=== PATIENT | male | born 1995 | race Caucasian/White ===

== ENCOUNTER → 2022-03-09 14:03 | Outpatient (BNVA) | payer MEDICARE, MEDICAID, SELFPAY | PROVIDERS: PCP Internal Medicine; Visit Provider Nurse Practitioner Family | DX: F95.2 Tourette's disorder (principal); M54.2 Cervicalgia; F98.8 Other specified behavioral and emotional disorders with onset usually occurring in childhood and adolescence; F84.9 Pervasive developmental disorder, unspecified; Z79.899 Other long term (current) drug therapy | CPT/HCPCS: 99212 ==

== ENCOUNTER 2024-01-10 13:30 | Outpatient (AMB) | payer MEDICARE, MEDICAID, SELFPAY ==
--- NOTE | 2024-01-10 13:32 | MHC.PC.OV ---
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 Allergies No Known Allergies [No Known Allergies*] Allergy (Verified 01/10/24 13:34) Medication List - Last Reconciled 01/10/24 by JAZMYN Landry atomoxetine 40 mg PO QAM baclofen 10 mg PO BEDTIME PRN lorazepam 0.5 mg PO DAILY PRN paroxetine HCl mg PO risperidone 2 mg PO TID; 30 days Tobacco use date assessed: 01/10/24 Dental Screening Dental Screen Date: 01/10/24 Did you have a dental visit in the last 12 months?: Yes Did you have a dental problem in the last 6 months where you did not have access to dental care?: No Was dental information given to patient?: Patient has dentist HPI Annual PE HPI Details Pt is here for a PE. Will order labs. Pt sees a psychiatrist and a therapist. Denies any SI and HI. PFSH Surgical History No pertinent past surgical history Family History Father Hypertension Kidney stones Diabetes Anxiety High cholesterol Mother Thyroid disease Sister Mental health disorder Social History Housing: House Alcohol intake: current Alcohol intake frequency: a few times a week Alcohol type: beer Patient Tobacco Use Status: Never used Tobacco e-Cigarette/Vaping Use: Never Used Second Hand Smoke Exposure: No service: No Current occupational status: employed Current occupation: [employer] Current occupational exposures/hazards: No Cognitive needs: No Hearing needs: No Vision needs: No Questionnaire PHQ-9 Over the last 2 weeks, how often have you been bothered by any of the following problems? 1. Little interest or pleasure in doing things: nearly every day 2. Feeling down, depressed, or hopeless: several days 3. Trouble falling or staying asleep, or sleeping too much: several days 4. Feeling tired or having little energy: not at all 5. Poor appetite or overeating: not at all 6. Feeling bad about yourself - or that you are a failure or have let yourself or your family down: several days 7. Trouble concentrating on things, such as reading the newspaper or watching television: more than half the days 8. Moving or speaking so slowly that other people could have noticed. Or the opposite - being so fidgety or restless that you have been moving around a lot more than usual: several days 9. Thoughts that you would be better off or of hurting yourself in some way: not at all Total score: 9 Depression Screening Interpretation: Positive (has a therapist and psychiatrist) Depression Screening Done: Yes 61837 - PHQ-9 Billing: Yes Source: Developed by Drs. Lloyd Damon, Susan Chan, Dexter Llanos and colleagues, with an educational noah from [employer]. Thrive Questionnaire Date Thrive assessed: 01/10/24 I am a: Patient What is your living situation today?: I have a steady place to live Within the past 12 months, did the food you bought not last and you didn't have the money to get more?: Never true Within the past 12 months, did you worry whether your food would run out before you got money to buy more?: Never true Do you have trouble paying for medicines?: No Do you have trouble getting transportation to medical appointments?: No Do you have trouble paying your heating and electricity bill?: No Do you have trouble taking care of your child, family member or friend?: No Do you have trouble with day-to-day activities such as bathing, preparing meals, shopping, managing finances, etc.?: No Are you currently unemployed and looking for a job?: No Are you interested in more education?: No Please select the resources that you would like help with: None Currently or been in a relationship where the following occur: no concerns reported THRIVE Score: 0 AUDIT C Alcohol Use Questionnaire (AUDIT-C) 1. How often do you have a drink containing alcohol?: 2-4 times a month 2. How many drinks containing alcohol do you have on a typical day when you are drinking?: 1 or 2 3. How often do you have six or more drinks on one occasion?: Never Total Score: 2 Score Reviewed/Action Taken: Yes HEATHER-7 AMB Questionnaire HEATHER-7 Date HEATHER - 7 assessed: 01/10/24 Feeling nervous, anxious, or on edge: 0 = Not at all Not being able to stop or control worryin = Not at all Worrying too much about different things: 0 = Not at all Trouble relaxin = Not at all Being so restless that it is hard to sit still: 0 = Not at all Becoming easily annoyed or irritable: 0 = Not at all Feeling afraid as if something awful might happen: 0 = Not at all Total HEATHER-7 score (0-4 normal; 5-9 mild; 10-14 moderate; 15-21 severe): 0 Source: Developed by Drs. Lloyd Damon, Susan Chan, Dexter Llanos and colleagues, with an educational noah from [employer]. HEATHER-7 Assessment Billing HEATHER-7 Assessment Tool: HEATHER-7 Assessment 72014 Review of Systems Const Denies chills and Denies fever(s) Eyes Denies blurry vision ENT Denies vertigo, Denies dizziness and Denies sore throat Card Denies chest pain at rest, Denies chest pain with activity, Denies diaphoresis, Denies dyspnea and Denies dyspnea on exertion Resp Denies cough, Denies dyspnea, Denies dyspnea on exertion and Denies wheezing GI Denies abdominal pain, Denies melena, Denies hematochezia, Denies constipation, Denies diarrhea and Denies loose stools Denies hematuria Musc Denies numbness and Denies tingling Skin/Breast Denies lesions Neuro Denies vertigo, Denies dizziness, Denies numbness and Denies tingling Psych Denies anxiety, Denies depression, Denies homicidal ideation, Denies suicidal ideation and Denies other (substance abuse) Aller/Immun Denies wheezing Physical exam (Primary Care) Vital Signs: Last Vital Signs Pulse 93 01/10/24 13:33 BP 118/68 01/10/24 13:33 Pulse Ox 98 01/10/24 13:33 Oxygen Delivery Method Room Air 01/10/24 13:33 BMI result Body Mass Index 29.6 Tobacco/Smoking Status: Tobacco use Status Tobacco use date assessed 01/10/24 01/10/24 13:39 Patient Tobacco Use Status Never used Tobacco 01/10/24 13:34 e-Cigarette/Vaping Use Never Used 01/10/24 13:34 PHQ-9: PHQ-9 Score PHQ-9: Total score 9 01/10/24 14:00 Depression Screening Interpretation: Positive (has a therapist and psychiatrist) Thrive Assessment: Date of Thrive Assessment Date Thrive assessed 01/10/24 01/10/24 13:39 Currently or been in a relationship where the following occur: no concerns reported Const General: cooperative Nutritional Appearance: well nourished Orientation/consciousness: patient oriented x3 HENMT Head: Yes normal to inspection, Yes normocephalic and Yes atraumatic Ears: TM's normal bilaterally Eyes General: appearance normal, both eyes and all related structures Alignment and Position: alignment normal and position normal Neck Neck: Yes normal visual inspection and Yes no lymphadenopathy Thyroid: Thyroid normal Resp Effort & Inspection: normal respiratory effort Auscultation: clear to auscultation bilaterally Cardio Rate: regular rate Rhythm: regular rhythm Heart sounds: S1 normal heart sound present, S2 normal heart sound present and no murmurs GI Palpation (GI): Soft to palpation and nontender Auscultation: normal bowel sounds Male General Exam: Yes normal external exam Penis: normal penis Scrotum: scrotum normal, testes descended bilaterally and no inguinal hernias Testes: no testicular mass Skin Rashes: no rashes Neuro General: patient oriented x3, moves all extremities, no focal motor deficits and deep tendon reflexes 2+ bilaterally Romberg Test: Negative Psych Appearance: grossly normal Mental Status: mental status grossly normal Speech and movement: Normal speech and movement present Affect: normal affect Attitude: cooperative Thought process: Normal thought process present Thought content: Normal thought content present Insight: Good insight present (Psych) Judgement: Good judgement present (Psych) Assessment and Plan Assessment & Plan (1) Physical exam: Code(s): Z00.00 - Encounter for general adult medical examination without abnormal findings Plan: Labs ordered Plan The patient agreed to the use of a medical records custodian for this encounter. Scribed for JAZMYN Morel by Shanique Voss medical records custodian, on 01/10/2024 at 14:00 EST. Orders: Orders Complete Blood Count Auto Diff Today Z00.00 - Encounter for general adult medical examination without abnormal findings Comprehensive [place]. Panel Fast Today Z00.00 - Encounter for general adult medical examination without abnormal findings UA CC w/rflx Micro + Cult Today Z00.00 - Encounter for general adult medical examination without abnormal findings Lipid Panel Today Z00.00 - Encounter for general adult medical examination without abnormal findings TSH reflex Free T4 Today Z00.00 - Encounter for general adult medical examination without abnormal findings Coding Level of Care Code Est Pt Prev Care 18-39y(35589) Diagnoses Physical exam Z00.00 Additional Codes HEATHER-7 Assessment Billing - HEATHER-7 Assessment Tool: HEATHER-7 Assessment 20312 ([id number])
[2024-01-10 13:33] VITALS: BP 118/68; PULSE 93; O2SAT 98; BMI 29.6
== END 2024-01-10 14:12 | disposition home or self-care (01) ==
PROVIDERS: PCP Nurse Practitioner Family; Visit Provider Nurse Practitioner Family
DX: Z00.00 Encounter for general adult medical examination without abnormal findings (principal)
CPT/HCPCS: 99395

== ENCOUNTER 2024-02-17 09:45 | Outpatient (AMB) | payer MEDICARE, MEDICAID, SELFPAY ==
[2024-02-17 09:53] VITALS: BP 114/78; PULSE 87; O2SAT 98; BMI 30.2
--- NOTE | 2024-02-17 09:53 | A.OFFVIS_ITS ---
Intake Vital Signs 02/17/24 09:53 Height 5 ft 6 in Weight 187 lb BMI 30.2 BP 114/78 Blood Pressure Location Rt brachial Position Sitting Pulse 87 Pulse Source Pulse Oximeter Pulse Oximetry (%) 98 Oxygen Delivery Method Room Air Intake Visit Reasons: Follow up-Conf Intake Note: Patient presents for follow up. no issues or concerns today. Allergies No Known Allergies [No Known Allergies*] Allergy (Verified 02/17/24 09:56) Medication List - Last Reconciled 02/17/24 by ERNESTO Leblanc atomoxetine 40 mg PO QAM baclofen 10 mg PO BEDTIME PRN 30 days lorazepam 0.5 mg PO DAILY PRN paroxetine HCl mg PO risperidone 2 mg PO TID; 30 days HPI HPI Comments History of Present Illness Details 29-yr-old male presents for f/u visit. Accompanied by his father. Pt denies any significant interval medical history changes. He has recently had his upper teeth excised and will get upper dentures- patient states this is due to familial soft dentition. He has a therapist and a psych med prescriber. He was switched to atomoxetine d/t adderral shortage. States he is doing well on the atomoxetine. 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 Overall eating and drinking well. He is drinking less- now trying zero-alcohol beer. States he is sleeping well. His mood is better since he has started the new job. He has a good friend- which is good for him. He reports his Tics are not as severe, but still present. Father endorses this sentiment. He can still have verbal yelling out, jerking movement, may jump if excited or nervous. He continues to use baclofen as needed for neck tightness, overall this is improved. [facility] Surgical History No pertinent past surgical history Family History Father Hypertension Kidney stones Diabetes Anxiety High cholesterol Mother Thyroid disease Sister Mental health disorder Social History Housing: House Alcohol intake: current Alcohol intake frequency: a few times a week Alcohol type: beer Patient Tobacco Use Status: Never used Tobacco e-Cigarette/Vaping Use: Never Used Second Hand Smoke Exposure: No service: No Current occupational status: employed Current occupation: [employer] Current occupational exposures/hazards: No Cognitive needs: No Hearing needs: No Vision needs: No Review of Systems Const All systems reviewed & are unremarkable except as noted in HPI and below Physical Exam Vital Signs: Last Vital Signs Pulse 87 02/17/24 09:53 BP 114/78 02/17/24 09:53 Pulse Ox 98 02/17/24 09:53 Oxygen Delivery Method Room Air 02/17/24 09:53 BMI result Body Mass Index 30.2 Const General: cooperative and no acute distress Resp Effort & Inspection: normal respiratory effort and able to speak in complete sentences Neuro Other: A&O x's 3, with mild developmental delay. Patient has increased insight today. Pleasant affect. Mild intermittent in motor tics. Rare vocal tic. 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 for tic symptoms. Baclofen 10mg as needed for cervicalgia. Continue regular physical activity. Continue to work with therapist and Psychiatry. Follow-up in 1 year or sooner as needed. Medications: Changed From baclofen 10 mg PO BEDTIME PRN muscle spasm To baclofen 10 mg PO BEDTIME PRN 30 tabs 3RF muscle spasm 30 days From risperidone 2 mg PO TID; 30 days 90 tabs 3RF To risperidone 2 mg PO TID; 90 tabs 6RF 30 days Coding Level of Care Code Est Pt Level 4 (57975) Diagnoses Tourette's syndrome F95.2 Pervasive developmental disorder F84.9 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 Cervicalgia M54.2
== END 2024-02-17 10:44 | disposition home or self-care (01) ==
PROVIDERS: PCP Nurse Practitioner Family; Visit Provider Nurse Practitioner Family
DX: F95.2 Tourette's disorder (principal); F84.9 Pervasive developmental disorder, unspecified; F98.8 Other specified behavioral and emotional disorders with onset usually occurring in childhood and adolescence; M54.2 Cervicalgia
CPT/HCPCS: 99214

== ENCOUNTER → 2024-02-17 09:45 | Outpatient (BNVA) | payer MEDICARE, MEDICAID, SELFPAY | PROVIDERS: PCP Nurse Practitioner Family; Visit Provider Nurse Practitioner Family | DX: F95.2 Tourette's disorder (principal); F84.9 Pervasive developmental disorder, unspecified; F98.8 Other specified behavioral and emotional disorders with onset usually occurring in childhood and adolescence; M54.2 Cervicalgia | CPT/HCPCS: 99212 ==

== ENCOUNTER 2025-02-05 14:53 | Outpatient (AMB) | payer MEDICARE, MEDICAID, SELFPAY ==
[2025-02-05 15:06] VITALS: BP 120/78; PULSE 90; TEMP 36.6; O2SAT 98; BMI 30.5
--- NOTE | 2025-02-05 15:06 | MHC.PC.OV ---
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 Accompanied by: Self / Same As Patient Allergies No Known Allergies [No Known Allergies*] Allergy (Verified 02/05/25 15:14) Medication List - Last Reconciled 02/05/25 by Evelio Armas, WIRE COATING OPERATOR METAL- atomoxetine 40 mg PO QAM baclofen 10 mg PO BEDTIME PRN 30 days lorazepam 0.5 mg PO DAILY PRN paroxetine HCl mg PO risperidone 2 mg PO TID; 30 days Tobacco use date assessed: 02/05/25 Dental Screening Dental Screen Date: 02/05/25 Did you have a dental visit in the last 12 months?: Yes Did you have a dental problem in the last 6 months where you did not have access to dental care?: No Was dental information given to patient?: Patient has dentist HPI Annual PE/Secondary covers PE HPI Details History of Present Illness The patient is a 29-year-old male presenting for a physical examination. He has a history of attention deficit disorder (ADD), pervasive developmental disorder, and Tourette's disorder. These conditions are carefully managed through regular visits with his psychiatric provider and neurologist. 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 He remains slightly overweight, and efforts to manage this include discussions around diet and alcohol use. The importance of exercise has also been highlighted, leveraging the favorable weather conditions to promote physical activity. No immediate concerns regarding his neurological and developmental disorders were stated or identified during the visit, and the patient appears to be managing these chronic conditions effectively. Health Maintenance - Encouraged reduction in alcohol consumption - Advised increased physical activity with approaching good weather - Weight management discussion Social History - Employment: New job working on a farm - Exercise: Encouraged due to good weather and slight overweight Review of Systems - Cardiovascular: Reports feeling great overall - Psychological: Reports positive mood with recent life changes Physical Exam General: Cooperative, healthy appearing, comfortable, no acute distress and well developed, obese Orientation: Patient oriented x3 Limitations: No limitations Head: Normal to inspection Ears: Hearing grossly normal bilaterally Nose: Normal external nose present Face and sinus: Normal facial exam Eyes: Appearance normal, both eyes and all related structures Neck: Normal visual inspection and Yes full ROM Respiratory: Normal respiratory effort and able to speak in complete sentences. Clear to auscultation bilaterally Cardiovascular: Regular rate and rhythm. Normal S1 and S2 : no testicular lesions, no hernias appreciated GI: Normal to inspection. Soft to palpation and nontender Skin: No rashes or lesions noted Neuro: Patient oriented x3 Extremities: Normal to inspection Results Plan Regular management of the patient's neurological and developmental disorders through follow-ups with psychiatric and neurology providers remains crucial. Discussions emphasized adopting a lifestyle conducive to weight management by encouraging increased physical activity and reducing alcohol intake. The positive effect of starting a new job is acknowledged and potentially contributes to the patient's improvement in mood and general outlook. Continuing lifestyle modifications, along with consistent monitoring and adherence to the established care plans, is the focus for sustained health and well-being. Discussion Notes I reviewed the patient's current well-being, focusing on his neurological and developmental conditions managed by his specialist providers. We discussed therapeutic benefits of weight management strategies, including exercise and reduced alcohol consumption. The patient was advised about the importance of these lifestyle adjustments, particularly with the good weather offering an opportunity for outdoor activities. I discussed the positive implications of these changes on his health. We agreed on continuing regular follow-ups with his psychiatric and neurological providers to ensure stable management of existing conditions. No immediate changes to his current medication or treatment regimen were proposed, pending ongoing assessments. Patient Instructions - Continue regular follow-ups with psychiatric and neurology specialists - Increase physical activity regularly, taking advantage of good weather - Monitor and reduce alcohol consumption - Maintain weight management efforts - Return to clinic if any new or worsening symptoms arise [facility] Surgical History No pertinent past surgical history Family History Father Hypertension Kidney stones Diabetes Anxiety High cholesterol Mother Thyroid disease Sister Mental health disorder Social History Housing: House Alcohol intake: current Alcohol intake frequency: a few times a week Alcohol type: beer Patient Tobacco Use Status: Never used Tobacco e-Cigarette/Vaping Use: Never Used Second Hand Smoke Exposure: No service: No Current occupational status: employed Current occupation: [employer] Current occupational exposures/hazards: No Cognitive needs: No Hearing needs: No Vision needs: No Questionnaire PHQ-9 Over the last 2 weeks, how often have you been bothered by any of the following problems? 1. Little interest or pleasure in doing things: not at all 2. Feeling down, depressed, or hopeless: not at all 3. Trouble falling or staying asleep, or sleeping too much: not at all 4. Feeling tired or having little energy: not at all 5. Poor appetite or overeating: not at all 6. Feeling bad about yourself - or that you are a failure or have let yourself or your family down: not at all 7. Trouble concentrating on things, such as reading the newspaper or watching television: not at all 8. Moving or speaking so slowly that other people could have noticed. Or the opposite - being so fidgety or restless that you have been moving around a lot more than usual: not at all 9. Thoughts that you would be better off or of hurting yourself in some way: not at all Total score: 0 Depression Screening Interpretation: Negative Depression Screening Done: Yes 34730 - PHQ-9 Billing: Yes Source: Developed by Drs. Lloyd Damon, Susan Chan, Dexter Llanos and colleagues, with an educational noah from [employer]. Thrive Questionnaire Date Thrive assessed: 02/05/25 I am a: Patient What is your living situation today?: I have a steady place to live Within the past 12 months, did the food you bought not last and you didn't have the money to get more?: Never true Within the past 12 months, did you worry whether your food would run out before you got money to buy more?: Never true Do you have trouble paying for medicines?: No Do you have trouble getting transportation to medical appointments?: No Do you have trouble paying your heating and electricity bill?: No Do you have trouble taking care of your child, family member or friend?: No Do you have trouble with day-to-day activities such as bathing, preparing meals, shopping, managing finances, etc.?: No Are you currently unemployed and looking for a job?: No Are you interested in more education?: No Please select the resources that you would like help with: Transportation Currently or been in a relationship where the following occur: No concerns reported THRIVE Score: 0 AUDIT C Alcohol Use Questionnaire (AUDIT-C) 1. How often do you have a drink containing alcohol?: 2-3 times a week 2. How many drinks containing alcohol do you have on a typical day when you are drinking?: 1 or 2 3. How often do you have six or more drinks on one occasion?: Less than monthly Total Score: 4 Score Reviewed/Action Taken: Yes HEATHER-7 AMB Questionnaire HEATHER-7 Date HEATHER - 7 assessed: 02/05/25 Feeling nervous, anxious, or on edge: 1 = Several days Not being able to stop or control worryin = Not at all Worrying too much about different things: 0 = Not at all Trouble relaxin = Not at all Being so restless that it is hard to sit still: 0 = Not at all Becoming easily annoyed or irritable: 0 = Not at all Feeling afraid as if something awful might happen: 0 = Not at all Total HEATHER-7 score (0-4 normal; 5-9 mild; 10-14 moderate; 15-21 severe): 1 Source: Developed by Drs. Lloyd Damon, Susan Chan, Dexter Llanos and colleagues, with an educational noah from [employer]. HEATHER-7 Assessment Billing HEATHER-7 Assessment Tool: HEATHER-7 Assessment 19496 Physical exam (Primary Care) Vital Signs: Last Vital Signs Temp 97.8 F 02/05/25 15:06 Pulse 90 02/05/25 15:06 BP 120/78 02/05/25 15:06 Pulse Ox 98 02/05/25 15:06 BMI result Body Mass Index 30.5 Tobacco/Smoking Status: Tobacco use Status Tobacco use date assessed 02/05/25 02/05/25 15:08 Patient Tobacco Use Status Never used Tobacco 02/05/25 15:08 e-Cigarette/Vaping Use Never Used 02/05/25 15:08 PHQ-9: PHQ-9 Score PHQ-9: Total score 0 02/05/25 15:08 Depression Screening Interpretation: Negative Thrive Assessment: Date of Thrive Assessment Date Thrive assessed 02/05/25 02/05/25 15:08 Currently or been in a relationship where the following occur: No concerns reported Coding Level of Care Code Est Pt Prev Care 18-39y(68370) Diagnoses Physical exam Z00.00 Pervasive developmental disorder F84.9 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 Tourette's syndrome F95.2 Additional Codes HEATHER-7 Assessment Billing - HEATHER-7 Assessment Tool: HEATHER-7 Assessment 50228 ([id number]) PHQ-9 - 13746 - PHQ-9 Billing: Yes ([id number]) Assessment & Plan Assessment & Plan (1) Physical exam: Code(s): Z00.00 - Encounter for general adult medical examination without abnormal findings Category: Medical (2) Pervasive developmental disorder: Code(s): F84.9 - Pervasive developmental disorder, unspecified Category: Medical (3) Attention deficit disorder predominant inattentive type: Code(s): F98.8 - Other specified behavioral and emotional disorders with onset usually occurring in childhood and adolescence Category: Medical (4) Tourette's syndrome: Code(s): F95.2 - Tourette's disorder Category: Medical Plan . Orders: Orders Comprehensive Hyder. Panel Fast Today F84.9 - Pervasive developmental disorder, unspecified, F95.2 - Tourette's disorder, F98.8 - Other specified behavioral and emotional disorders with onset usually occurring in childhood and adolescence, Z00.00 - Encounter for general adult medical examination without abnormal findings Complete Blood Count Auto Diff Today F84.9 - Pervasive developmental disorder, unspecified, F95.2 - Tourette's disorder, F98.8 - Other specified behavioral and emotional disorders with onset usually occurring in childhood and adolescence, Z00.00 - Encounter for general adult medical examination without abnormal findings TSH reflex Free T4 Today F84.9 - Pervasive developmental disorder, unspecified, F95.2 - Tourette's disorder, F98.8 - Other specified behavioral and emotional disorders with onset usually occurring in childhood and adolescence, Z00.00 - Encounter for general adult medical examination without abnormal findings UA CC w/rflx Micro + Cult Today F84.9 - Pervasive developmental disorder, unspecified, F95.2 - Tourette's disorder, F98.8 - Other specified behavioral and emotional disorders with onset usually occurring in childhood and adolescence, Z00.00 - Encounter for general adult medical examination without abnormal findings Lipid Panel Today F84.9 - Pervasive developmental disorder, unspecified, F95.2 - Tourette's disorder, F98.8 - Other specified behavioral and emotional disorders with onset usually occurring in childhood and adolescence, Z00.00 - Encounter for general adult medical examination without abnormal findings
== END 2025-02-05 15:54 | disposition home or self-care (01) ==
LOC: HO.HMCC 14:54
PROVIDERS: PCP Nurse Practitioner Family; Visit Provider Nurse Practitioner Family
DX: Z00.00 Encounter for general adult medical examination without abnormal findings (principal); F84.9 Pervasive developmental disorder, unspecified; F98.8 Other specified behavioral and emotional disorders with onset usually occurring in childhood and adolescence; F95.2 Tourette's disorder

== ENCOUNTER → 2025-02-05 14:53 | Outpatient (BNVA) | payer MEDICARE, MEDICAID, SELFPAY | PROVIDERS: PCP Nurse Practitioner Family; Visit Provider Nurse Practitioner Family | DX: Z00.00 Encounter for general adult medical examination without abnormal findings (principal); F84.9 Pervasive developmental disorder, unspecified; F98.8 Other specified behavioral and emotional disorders with onset usually occurring in childhood and adolescence; F95.2 Tourette's disorder | CPT/HCPCS: 96127; 99395 ==

== ENCOUNTER 2025-06-21 11:05 | Outpatient (AMB) | payer MEDICARE, MEDICAID, SELFPAY ==
--- OUTSIDE RECORDS SUMMARY | 2025-06-21 11:15 | XMS_ITS ---
Author Name [facility] Organization Unknown Care Team Organization Name Specialty Phone Email Start Date End Da te [facility] FLORENCIO CHASE Primary [facility] 09/28/2022 07/09/2024
--- OUTSIDE RECORDS SUMMARY | 2025-06-21 11:15 | XMS_ITS | Encounter Summary ---
Author Organization [facility] Address [address] [place] [address] Care Team Providers Care Early Childhood Worker Name Role Phone Terese Borrego DO Primary Care Pro vider Unavailable Lloyd Elias DO Primary Care Provider Gretel vailable Reason for Visit * Reason Onset Date Comments refill request 10/18/2017 Encounter Details Date Type Department Care Team Description 10/18/2017 Refill Adult Medicine [address] [address] Terese Borrego DO refill request Social History Tobacco Use Types Packs/Day Years Used Date Smoking Tobacco: Never Alcohol Use Standard Drinks/Week Comments Yes 0 (1 standard drink = 0.6 oz pur e alcohol) occ Sex Assigned at Date Recorded Not on file documented as of this encounter Miscellaneous Notes * Telephone Encounter - Joan Carroll M.A. 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 06/29/2017 WHEN WAS THE LAST TIME THE PATIENT SAW THEIR PCP? Same as above Does patient have an upcoming appointment? Yes 12/30/2017 (THE MEDICATION REQUESTED IS ON THE MED LIST ABOVE) All of the medications requested were on the CURRENT MEDS list Did you check the Pharmacy information above?: NO Patient wants: 30 -day supply Is this a mail order prescription request ? NO Patients current insurance carrier is: [place] / Plan: MEDICARE-[place] Bandwidth / Product Type: MEDICARE [id number] documented in this encounter Plan of Treatment Not on file documented as of this encounter Visit Diagnoses Diagnosis ADHD (attention deficit hyperactivity disorder) Attention deficit disorder with hyperactivity documented in this encounter Care Teams Early Childhood Worker Relationship Specialty Start Date End Date Terese Borrego DO PCP - General Internal Medicine 10/11/14 05/26/21 Lloyd Elias DO PCP - General Internal Medicine 05/27/21 documented as of this encounter
[2025-06-21 11:31] VITALS: BP 140/110; PULSE 100; O2SAT 98; BMI 30.7
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
== END 2025-06-21 12:23 | disposition home or self-care (01) ==
LOC: HO.HSMS 11:06
PROVIDERS: PCP Nurse Practitioner Family; Visit Provider Nurse Practitioner Family
DX: F95.2 Tourette's disorder (principal); F84.9 Pervasive developmental disorder, unspecified; F98.8 Other specified behavioral and emotional disorders with onset usually occurring in childhood and adolescence; M54.2 Cervicalgia; F10.10 Alcohol abuse, uncomplicated
CPT/HCPCS: 99214

== ENCOUNTER → 2025-06-21 11:05 | Outpatient (BNVA) | payer MEDICARE, MEDICAID, SELFPAY | PROVIDERS: PCP Nurse Practitioner Family; Visit Provider Nurse Practitioner Family | DX: F95.2 Tourette's disorder (principal); F84.9 Pervasive developmental disorder, unspecified; F98.8 Other specified behavioral and emotional disorders with onset usually occurring in childhood and adolescence; F10.10 Alcohol abuse, uncomplicated; M54.2 Cervicalgia | CPT/HCPCS: 99212 ==

== ENCOUNTER 2025-07-25 08:35 | Outpatient (REF) | payer MEDICARE, MEDICAID, SELFPAY ==
[2025-07-25 10:18] LABS: MANUAL DIFF FLAG NO
[2025-07-25 10:19] LABS: Hematocrit 45.0 % (42.0-52.0); Hemoglobin 16.2 g/dl (14.0-18.0); Imm Gran Abs Auto 0.06 X10*3/uL (0.00-0.03); Imm Gran Pct Auto 1.0 % (0.0-0.4); Lymphocytes Absolute Auto 2.3 X10*3/uL (1.2-4.9); Mean Corpuscular HGB Conc 36.0 g/dl (31.0-36.0); Mean Corpuscular Hemoglobin 33.5 pg (27.0-33.0); Mean Corpuscular Volume 93.0 fL (80.0-98.0); NRBC Abs Auto 0.000 X10*3/uL (0.0-0.012); NRBC Pct Auto 0.0 /100WBC (0.0-0.2); Platelet Count 264 X10*3/uL (160-400); Red Blood Count 4.84 X10*6/uL (4.60-5.80); White Blood Count 6.3 X10*3/uL (4.8-10.8)
[2025-07-25 10:51] LABS: Alanine Aminotransferase 181 U/L (0-40); Albumin Level 4.6 g/dL (3.5-5.0); Alkaline Phosphatase 91 U/L (39-117); Anion Gap 12 (12-20); Aspartate Amino Transferase 88 U/L (5-37); Blood Urea Nitrogen 19 mg/dL (9-16); Calcium 9.1 mg/dL (8.4-10.2); Carbon Dioxide 23 mmol/L (22-29); Chloride 104 mmol/L (96-108); Cholesterol 308 mg/dL (<200); Estimated Glomerular Filt Rate > 60; HDL Cholesterol 38 mg/dL (>40); Potassium 3.7 mmol/L (3.3-5.1); Sodium 135 mmol/L (135-145); Total Protein 6.9 g/dL (6.5-8.0); Triglycerides 230 mg/dL (<150)
[2025-07-25 13:10] LABS: Appearance Urine Cloudy; Glucose Urine UA Negative (Negative); PH 6.5 (5.0-9.0); Specific Gravity - Urine 1.010 (1.005-1.025)
== END 2025-07-25 08:36 | disposition home or self-care (01) ==
LOC: HO.HMGCLDS 08:35
PROVIDERS: PCP Nurse Practitioner Family; Visit Provider Nurse Practitioner Family
DX: Z00.00 Encounter for general adult medical examination without abnormal findings (principal); Z13.29 Encounter for screening for other suspected endocrine disorder; Z13.6 Encounter for screening for cardiovascular disorders; F84.9 Pervasive developmental disorder, unspecified; F98.8 Other specified behavioral and emotional disorders with onset usually occurring in childhood and adolescence; F95.2 Tourette's disorder
CPT/HCPCS: 36415; 80053; 80061; 81003; 84443; 85025